=== PATIENT | female | born 1990 | race African-American/Black ===

== ENCOUNTER → 2016-12-05 | Outpatient (CLI) | payer OTHER ==
[2014-12-31 09:29] VITALS: BP 114/73
== END | disposition home or self-care (01) ==
LOC: SPEC 13:13
PROVIDERS: ATTEND Nurse Practitioner Women's Health
DX: Z01.419 Encounter for gynecological examination (general) (routine) without abnormal findings (principal)
CPT/HCPCS: 87621; 88175

== ENCOUNTER 2019-10-08 17:13 | Emergency (ER) | payer BC, OTHER ==
[~2019-10-08] VITALS: Ht 167.6 cm; Wt 96.0 kg
[2019-10-08 17:37] LABS: BILIRUBIN,URINE NEGATIVE (NEG); CLARITY,URINE CLEAR; COLOR,URINE YELLOW; NITRITE,URINE NEGATIVE (NEG); PH,URINE 8.5; PROTEIN,URINE NEGATIVE (NEG-TRACE)
--- NOTE | 2019-10-08 17:38 | PHYS DOC ---
Past Medical History Past Medical History: No Pertinent History, Anxiety Past Surgical History: No Surgical History Alcohol Use: Occasionally Drug Use: None Adult General Chief Complaint Chief Complaint: ABDOMINAL PAIN HPI HPI Patient is a 28 year old female who presents with constipation. She states she's not had a good bowel movement for one month. She states that she has this problem often. She states that 2 days ago she took citrate and mixed with some mineral oil. She states she had a very small hard bowel movement. She states she has nausea but is not vomiting. She states she does have some abdominal cramping. She claims of distention and bloating. She rates her discomfort a 6 out of 10. Review of Systems Review of Systems GI: generalized abdominal pain, constipation. Denies nausea, vomiting, bloody stools or diarrhea [] All other systems were reviewed and found to be within normal limits, except as documented in this note. Allergies Allergies Allergies Coded Allergies Type Severity Reaction Last Updated Verified No Known Drug Allergies 10/18/13 No Physical Exam Physical Exam Constitutional: Well developed, well nourished, no acute distress, non-toxic appearance. [] HENT: Normocephalic, atraumatic, bilateral external ears normal, oropharynx mo ist, no oral exudates, nose normal. [] Eyes: PERRLA, EOMI, conjunctiva normal, no discharge. [] Neck: Normal range of motion, no tenderness, supple, no stridor. [] Cardiovascular:Heart rate regular rhythm, no murmur [] Lungs & Thorax: Bilateral breath sounds clear to auscultation [] Abdomen: Bowel sounds normal, soft, distended, no tenderness, no masses, no pulsatile masses. [] Skin: Warm, dry, no erythema, no rash. [] Back: No tenderness, no CVA tenderness. [] Extremities: No tenderness, no cyanosis, no clubbing, ROM intact, no edema. [] Neurologic: Alert and oriented X 3, normal motor function, normal sensory function, no focal deficits noted. [] Psychologic: Affect normal, judgement normal, mood normal. [] Current Patient Data Vital Signs Vital Signs Date Time Temp Pulse Resp B/P (MAP) Pulse Ox O2 Delivery O2 Flow Rate FiO2 10/08/19 18:30 82 123/62 (82) 98 Room Air 10/08/19 18:00 16 10/08/19 17:16 98.4 98.4 Lab Values Laboratory Tests Test 10/08/19 17:23 10/08/19 17:27 Urine Collection Type Unknown Urine Color Yellow Urine Clarity Clear Urine pH 8.5 Urine Specific Randolph 1.025 Urine Protein Negative mg/dL (NEG-TRACE) Urine Glucose (UA) Negative mg/dL (NEG) Urine Ketones (Stick) Negative mg/dL (NEG) Urine Blood Negative (NEG) Urine Nitrite Negative (NEG) Urine Bilirubin Negative (NEG) Urine Urobilinogen Dipstick 1.0 mg/dL (0.2 mg/dL) Urine Leukocyte Esterase Small (NEG) Urine RBC 0 /HPF (0-2) Urine WBC Rare /HPF (0-4) Urine Squamous Epithelial Cells Mod /LPF Urine Bacteria Few /HPF (0-FEW) Urine Mucus Slight /LPF POC Urine HCG, Qualitative Hcg negative (Negative) EKG EKG [] Radiology/Procedures Radiology/Procedures [] Impressions: [facility] [id number] [place] [address] IMAGING REPORT Signed PATIENT: RICKY LAGUNA SACCOUNT: [id number] : 1990 LOCATION: ER AGE: 28 SEX: F EXAM STATUS: REG ER ORD. PHYSICIAN: SINA CARRERA APRN REASON: constipation PROCEDURE: KUB Exam: Abdomen one view INDICATION: Constipation TECHNIQUE: Frontal view of the abdomen Comparisons: None FINDINGS: Air and stool are noted throughout the colon to level the rectum in a nonobstructive bowel gas pattern. No suspicious masses or calcifications. Visualized osseous structures are unremarkable. IMPRESSION: Nonobstructive bowel gas pattern. Electronically signed by: Ling Dick MD (10/08/2019 6:09 PM) [facility] DICTATED and SIGNED BY: LING DICK MD DATE: 10/08/191808 Course & Med Decision Making Course & Med Decision Making Alert and oriented. Speaks in full worsens. Ambulatory and steady gait. Patient denies any diarrhea. Abdomen is distended but soft. Bowel sounds are heard. No tenderness to the abdomen. Vital signs within normal limits. Afebrile. She denies any dysuria symptoms. KUB read by Dr Gross as no obvious acute findings except for constipation. I have ordered a Soap Suds enema. Patient states there is no stool in her rectum. She denies any pressure of pain in her rectum. She states it is all upper. Patient states that only fluid came out. Dragon Disclaimer Dragon Disclaimer This electronic medical record was generated, in whole or in part, using a voice recognition dictation system. Departure Departure Impression: Primary Impression: Constipation Disposition: 01 HOME, SELF-CARE Condition: STABLE Referrals: UNKNOWN PCP NAME (PCP) LISA BLAKE MD Patient Instructions: Constipation, Adult Additional Instructions: Follow up with your primary care physician or the GI doctor I referred you too. Take the bottle of mag citrate tonight and drink alot of fluids. Start Lactulose tomorrow. Scripts Lactulose (LACTULOSE) 20 Gm/30 Ml Solution 10 GM PO BID PRN for CONSTIPATION, #450 ML Once moving bowels go to once a day until you feel relieved. If you begin to have diarrhea than stop using. Prov: SINA CARRERA NETWORK SUPPORT ADMINISTRATOR 10/08/19 Magnesium Citrate (MAGNESIUM CITRATE) 296 Ml Solution 296 ML PO ONCE, #296 ML Prov: SINA CARRERA NETWORK SUPPORT ADMINISTRATOR 10/08/19 Problem Qualifiers Primary Impression: Constipation Constipation type: unspecified constipation type Qualified Codes: K59.00 - Constipation, unspecified SINA CARRERA NETWORK SUPPORT ADMINISTRATOR Oct 08, 2019 17:38
[2019-10-08 17:45] LABS: BACTERIA,URINE FEW /HPF (0-FEW); RBC,URINE 0 /HPF (0-2); SQUAMOUS EPITHELIAL CELL,UR MOD /LPF; WBC,URINE RARE /HPF (0-4)
--- NOTE | 2019-10-08 18:12 | RAD ---
Exam: Abdomen one view INDICATION: Constipation TECHNIQUE: Frontal view of the abdomen Comparisons: None FINDINGS: Air and stool are noted throughout the colon to level the rectum in a nonobstructive bowel gas pattern. No suspicious masses or calcifications. Visualized osseous structures are unremarkable. IMPRESSION: Nonobstructive bowel gas pattern. Electronically signed by: Ling Deleon MD (10/08/2019 6:09 PM) [facility]
[2019-10-08 18:30] VITALS: BP 123/62
[2019-10-08] MEDS ORDERED: MAGN296S68 PO (18:35)
[2019-10-08] MEDS ORDERED: LACT20SO PO (18:52)
== END 2019-10-08 18:56 | disposition home or self-care (01) ==
LOC: ER 17:13
DX: K59.00 Constipation, unspecified (principal); R10.84 Generalized abdominal pain; F41.9 Anxiety disorder, unspecified
CPT/HCPCS: 74018; 81001; 81025; 87086; 99285